=== PATIENT | female | born 1955 | race Caucasian/White ===

== ENCOUNTER 2017-12-04 07:08 | Outpatient (CLI) | payer OTHER | END 2017-12-04 07:16 | disposition home or self-care (01) | LOC: SONOGRAMA 07:08 | DX: E04.2 Nontoxic multinodular goiter (principal) ==

== ENCOUNTER 2024-04-05 06:34 | Day surgery (SDC) | payer OTHER ==
[2024-04-05] MEDS ORDERED: CEFAZOLIN SODIUM 1,000 MG VIAL ONE (14:27)
[2024-04-05] MEDS ORDERED: CHLORHEXIDINE GLUCONATE 120 ML BOTTLE TOP ONE (14:28)
[2024-04-05] MEDS ORDERED: ONDANSETRON HCL 2 MG/ML VIAL ONE (19:11)
== END 2024-04-05 20:30 | disposition home or self-care (01) ==
LOC: CIR.AMB 06:34
PROVIDERS: ATTEND Surgery
DX: D05.11 Intraductal carcinoma in situ of right breast (principal); R59.0 Localized enlarged lymph nodes; N62 Hypertrophy of breast; Z88.6 Allergy status to analgesic agent; J45.909 Unspecified asthma, uncomplicated; K29.70 Gastritis, unspecified, without bleeding; F32.A Depression, unspecified; N65.1 Disproportion of reconstructed breast
CPT/HCPCS: 19301; 38525; 19318; 19281; A9541; L8699